=== PATIENT | female | born 1975 ===

== ENCOUNTER 2021-10-25 17:50 | Inpatient (IN) | payer OTHER ==
[~2021-10-25] VITALS: Ht 160 cm; Wt 81.6 kg
[2021-10-25] MEDS ORDERED: B12-FOLIC ACID1 EACH PO (17:59)
[2021-10-28] MEDS ORDERED: FUSION PLUS CA1 EACH PO (08:49)
== END 2021-10-28 13:17 | DRG 812 ==
LOC: ER 17:50 → OB/GYN 10-26 09:09 → SEC-K 10-26 09:09 → OB/GYN 10-26 19:15
PROVIDERS: ADMIT Obstetrics & Gynecology; ATTEND Obstetrics & Gynecology
PROC: 30233N1 Transfusion of Nonautologous Red Blood Cells into Peripheral Vein, Percutaneous Approach (ICD-10-PCS; principal; 2021-10-26)
DX: D50.0 Iron deficiency anemia secondary to blood loss (chronic) (principal); N93.8 Other specified abnormal uterine and vaginal bleeding; Z20.822 Contact with and (suspected) exposure to COVID-19; D51.0 Vitamin B12 deficiency anemia due to intrinsic factor deficiency; D51.8 Other vitamin B12 deficiency anemias